=== PATIENT | male | born 1985 | race African-American/Black ===

== ENCOUNTER 2018-11-18 19:42 | Emergency (ER) | payer OTHER ==
[2018-11-18] MEDS ORDERED: LIDOCAINE 1%/EPINEPHRINE INJ 20 ML VIAL INJ ONE (19:58)
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
[2018-11-18 23:03] VITALS: BP 123/74
[2018-11-18] MEDS ORDERED: IBUPROFEN 600 MG TABLET ONE (23:30)
[2018-11-18] MEDS ORDERED: IBUPROFEN 600 MG TABLET PO ONE (23:30)
== END 2018-11-18 23:34 | disposition home or self-care (01) ==
LOC: ER 19:42
DX: S71.111A Laceration without foreign body, right thigh, initial encounter (principal); S61.411A Laceration without foreign body of right hand, initial encounter; V49.40XA Driver injured in collision with unspecified motor vehicles in traffic accident, initial encounter
CPT/HCPCS: 99283; 73120; 73562; 12032; 12001; J3490

== ENCOUNTER 2018-11-20 21:39 | Emergency (ER) | payer OTHER ==
[2018-11-20 21:52] VITALS: BP 123/80
--- NOTE | 2018-11-20 22:35 | ER Document Report ---
HPI - HPI Patient complains to provider of: Wound recheck Time Seen by Provider: 11/20/18 22:14 Pain Level: 1 Context: Patient is a 33-year-old male presents to the emergency department for a wound recheck. Patient states on 11/18/2018 he had 4 sutures placed at the base of his right pinky laterally. Patient states he has been excessively stretching that hands and feels as though some of his sutures are loose. There is no surrounding erythema, discharge, bleeding noted. Past medical history: None Medications: None Allergies: None Past Medical History - General Information source: Patient - Social History Smoking Status: Unknown if Ever Smoked Family History: Reviewed & Not Pertinent Renal/ Medical History: Denies: Hx Peritoneal Dialysis Past Surgical History: Reports: Hx Herniorrhaphy - Immunizations Hx Diphtheria, Pertussis, Tetanus Vaccination: Yes Vertical Provider Document - CONSTITUTIONAL Agree With Documented VS: Yes Notes: GENERAL: Alert, interacts well. No acute distress. HEAD: Normocephalic, atraumatic. EYES: Pupils equal, round, and reactive to light. Extraocular movements intact. ENT: Oral mucosa moist, tongue midline. NECK: Full range of motion. Supple. Trachea midline. LUNGS: Clear to auscultation bilaterally, no wheezes, rales, or rhonchi. No respiratory distress. HEART: Regular rate and rhythm. No murmur ABDOMEN: Soft, non-tender. Non-distended. Bowel sounds present in all 4 quadrants. EXTREMITIES: Moves all 4 extremities spontaneously. No edema, normal radial and dorsalis pedis pulses bilaterally. No cyanosis. BACK: no cervical, thoracic, lumbar midline tenderness. No saddle anesthesia, normal distal neurovascular exam. NEUROLOGICAL: Alert and oriented x3. Normal speech. cranial nerves II through XII grossly intact PSYCH: Normal affect, normal mood. SKIN: Warm, dry, normal turgor. Patient's right proximal pinky base near the MCP joints laterally appears to have 4 sutures. They appear to all be intact, no surrounding erythema, discharge, bleeding noted. Course - Re-evaluation Re-evalutation: 11/20/18 22:33 Discussed use of Steri-Strips to reinforce sutures. Discussed close watch of the wound for infection. Patient voices understanding, stable for discharge. - Vital Signs Vital signs: Temp Pulse Resp BP Pulse Ox 98.8 F 86 17 123/80 100 11/20/18 21:51 11/20/18 21:51 11/20/18 21:51 11/20/18 21:51 11/20/18 21:51 Discharge - Discharge Clinical Impression: Encounter for re-check of laceration wound Condition: Stable Disposition: HOME, SELF-CARE Instructions: Hand Laceration ([facility]), [facility] ([facility]) Additional Instructions: You have been seen in the emergency department for a wound recheck of injury to your right pinky finger. We have placed Steri-Strips to reinforce the sutures. Please keep them in place until you have the sutures removed. Please make sure you return to the emergency room immediate he should the wound become red, swollen, have discharge or be foul-smelling. Please return to the emergency room for any other concerning symptoms as well.
== END 2018-11-20 23:02 | disposition home or self-care (01) ==
LOC: ER 21:39
DX: S61.216D Laceration without foreign body of right little finger without damage to nail, subsequent encounter (principal); X58.XXXD Exposure to other specified factors, subsequent encounter
CPT/HCPCS: 99282

== ENCOUNTER 2018-11-25 08:19 | Emergency (ER) | payer OTHER ==
[2018-11-25 08:23] VITALS: BP 121/73
--- NOTE | 2018-11-25 09:33 | ER Document Report ---
ED Suture/Wound Recheck - General Chief Complaint: Suture Removal Stated Complaint: SUTURE REMOVAL Time Seen by Provider: 11/25/18 09:30 Mode of Arrival: Ambulatory Information source: Patient Notes: 33-year-old male presents to ED for complaint of need for suture removal from his right fifth finger and right leg. He denies any pain or drainage from any of these wounds. He states he is ready to have the sutures removed. He has 4 sutures in his right base of his fifth finger that are clean dry approximated with no redness no drainage or bleeding noted. He also has 9 sutures to the rig ht thigh. It is also well approximated no drainage and denies any discomfort at this time. All sutures will be removed TRAVEL OUTSIDE OF THE [place] IN LAST 30 DAYS: No - HPI Previous ED treatment: Laceration repair Quality of pain: No pain Severity: None Pain Level: Denies Context: Injury Symptoms since procedure: No complaints Exacerbated by: Denies Relieved by: Denies - Related Data Allergies/Adverse Reactions: No Known Allergies Allergy (Unverified 01/18/14 18:12) Past Medical History - General Information source: Patient - Social History Smoking Status: Current Every Day Smoker Cigarette use (# per day): Yes - 1 or 2 black in miles a day Chew tobacco use (# tins/day): No Smoking Education Provided: Yes - Minutes Frequency of alcohol use: Social Drug Abuse: None Lives with: Family Family History: Reviewed & Not Pertinent Patient has suicidal ideation: No Patient has homicidal ideation: No - Past Medical History Cardiac Medical History: Reports: None Pulmonary Medical History: Reports: None EENT Medical History: Reports: None Neurological Medical History: Reports: None Endocrine Medical History: Reports: None Renal/ Medical History: Reports: None Malignancy Medical History: Reports None GI Medical History: Reports: None Musculoskeletal Medical History: Reports None Skin Medical History: Reports None Psychiatric Medical History: Reports: None Traumatic Medical History: Reports: None Infectious Medical History: Reports: None Past Surgical History: Reports: Hx Herniorrhaphy - Immunizations Hx Diphtheria, Pertussis, Tetanus Vaccination: Yes Review of Systems - Review of Systems Constitutional: No symptoms reported EENT: No symptoms reported Cardiovascular: No symptoms reported Respiratory: No symptoms reported Gastrointestinal: No symptoms reported Genitourinary: No symptoms reported Male Genitourinary: No symptoms reported Musculoskeletal: No symptoms reported Skin: Other Hematologic/Lymphatic: No symptoms reported Neurological/Psychological: No symptoms reported -: Yes All other systems reviewed and negative Physical Exam - Vital signs Vitals: Temp Pulse Resp BP Pulse Ox 97.7 F 71 14 121/73 99 11/25/18 08:22 11/25/18 08:22 11/25/18 08:22 11/25/18 08:22 11/25/18 08:22 Interpretation: Normal - General General appearance: Appears well, Alert - HEENT Head: Normocephalic, Atraumatic Eyes: Normal Pupils: PERRL - Respiratory Respiratory status: No respiratory distress Chest status: Nontender Breath sounds: Normal Chest palpation: Normal - Cardiovascular Rhythm: Regular Heart sounds: Normal auscultation Murmur: No - Abdominal Inspection: Normal Distension: No distension Bowel sounds: Normal Tenderness: Nontender Organomegaly: No organomegaly - Back Back: Normal, Nontender - Extremities General upper extremity: Normal inspection, Nontender, Normal color, Normal ROM, Normal temperature General lower extremity: Normal inspection, Nontender, Normal color, Normal ROM, Normal temperature, Normal weight bearing. No: Sugey's sign - Neurological Neuro grossly intact: Yes Cognition: Normal Orientation: AAOx4 [place] Coma Scale Eye Opening: Spontaneous [place] Coma Scale Verbal: Oriented Adrienne Coma Scale Motor: Obeys Commands [place] Coma Scale Total: 15 Speech: Normal Motor strength normal: LUE, RUE, LLE, RLE Sensory: Normal - Psychological Associated symptoms: Normal affect, Normal mood - Skin Skin Temperature: Warm Skin Moisture: Dry Skin Color: Normal Skin irregularity: Laceration Location of irregularity: Extremities - Suture removal from the right fifth finger and the right thigh Irregularity with: negative: Swelling, Tenderness - no signs or symptoms of infection and sutures will be removed patient will be discharged home, [place] Course - Re-evaluation Re-evalutation: 11/25/18 10:22 After sutures removed from the right base of the fifth finger it opened a less than half a centimeter. Patient was instructed to keep clean and apply bacitracin and return for any increase in symptoms such as redness swelling drainage. Patient was discharged home with instructions to return for any symptoms as described above. Patient verbalized understanding and agreement with treatment plan - Vital Signs Vital signs: Temp Pulse Resp BP Pulse Ox 97.7 F 71 14 121/73 99 11/25/18 08:22 11/25/18 08:22 11/25/18 08:22 11/25/18 08:22 11/25/18 08:22 Discharge - Discharge Clinical Impression: Visit for suture removal Condition: Stable Disposition: HOME, SELF-CARE Instructions: Family Physicians / Practices, Suture Removal Additional Instructions: Acetaminophen Acetaminophen may be taken for pain relief or fever control. It's much safer than aspirin, offering a wider range of "safe" dosages. It is safe during . Some brand names are Tylenol, Panadol, Datril, Anacin 3, Tempra, and Liquiprin. Acetaminophen can be repeated every four hours. The following are maximum recommended dosages: WEIGHT Dose Drops Elixir Chewable(80mg) (LBS.) drprs=droppers tsp=teaspoon 6 40 mg .4 ml (1/2) 6-11 80 mg .8 ml (full) 1/2 tsp 1 tab 12-16 120 mg 1 1/2 drprs 3/4 tsp 1 1/2 tabs 17-23 160 mg 2 drprs 1 tsp 2 tabs 24-30 240 mg 3 drprs 1 1/2 tsp 3 tabs 30-35 320 mg 2 tsp 4 tabs 36-41 360 mg 2 1/4 tsp 4 1/2 tabs 42-47 400 mg 2 1/2 tsp 5 tabs 48-53 480 mg 3 tsp 6 tabs 54-59 520 mg 3 1/4 tsp 6 1/2 tabs 60-64 560 mg 3 1/2 tsp 7 tabs 65-70 600 mg 3 3/4 tsp 7 1/2 tabs 71-76 640 mg 4 tsp 8 tabs 77-82 720 mg 4 1/2 tsp 9 tabs 83-88 800 mg 5 tsp 10 tabs >89 pounds or adults 650 mg to 900 mg Acetaminophen can be repeated every four hours. Maximum daily dose not to exceed 4000 mg. These maximum recommended dosages are slightly higher than the dosages written on the product container, but these dosages are very safe and well below the toxic dosage for acetaminophen. Antibiotic Ointment Protection Your wounds are such that dressing them is not practical or optional. After cleansing, you should apply a thin coating of antibiotic ointment (Bacitracin, not Neosporin) to the wounds at least three times daily. This less ens infection risk, and may decrease the amount of scarring. Use a q-tip or dull butter knife, not your finger, to apply this ointment. Any debris or ooze which builds up in the ointment should be gently rubbed off with a sterile gauze pad. Harder crusting may need to be gently scrubbed off with a clean wash cloth with soap and warm water, perhaps applying a warm, wet wash cloth to the wound for ten minutes first. Development of redness, severe itching, or blistering may mean allergy to the ointment. See the doctor. FOLLOW-UP CARE: If you have been referred to a physician for follow-up care, call the physicians office for an appointment as you were instructed or within the next two days. If you experience worsening or a significant change in your symptoms, notify the physician immediately or return to the Emergency Department at any time for re-evaluation. Forms: Smoking Cessation Education, Return to Work
== END 2018-11-25 09:51 | disposition home or self-care (01) ==
LOC: ER 08:19
DX: S81.811D Laceration without foreign body, right lower leg, subsequent encounter (principal); X58.XXXD Exposure to other specified factors, subsequent encounter; F17.210 Nicotine dependence, cigarettes, uncomplicated